=== PATIENT | male | born 1980 | race Asian ===

== ENCOUNTER 2023-12-15 10:24 | Emergency (ER) | payer OTHER, SELFPAY ==
[2023-12-15 10:36] VITALS: BP 135/67; PULSE 69; RESP 19; TEMP 36.4; O2SAT 97; BMI 33.4
--- NOTE | 2023-12-15 11:26 | ED.EYEPROB ---
HPI - Eye Problem <Neri Wright PA-C - Last Filed: 12/15/23 11:33> General Chief complaint: Eye Problems Stated complaint: Recurring [facility] Time Seen by Provider: 12/15/23 11:26 Source: patient Mode of arrival: Ambulatory History of Present Illness HPI Narrative: This is a 43-year-old male presents emergency department due to continued right eye irritation and redness. Patient states that he was diagnosed with a right-sided pink eye as well as strep throat 2 weeks ago and was prescribed a course of amoxicillin. He took amoxicillin as recommended which helped improve his sore throat and he was right eye initially but states that his right eye has been irritated and red with yellow crusting drainage over the last couple of days. Denies any swelling around the eye, pain with extraocular eye movement, vision changes, or any other concerning signs or symptoms. Related Data Previous Rx's Medication Instructions Recorded polymyxin B sulfate 10,000 1 drp EYE-RIGHT QID 7 days #10 mL 12/15/23 unit-trimethoprim 1 mg/mL eye drops Allergies Allergy/AdvReac Type Severity Reaction Status Date / Time No Known Drug Allergies Allergy Verified 12/15/23 10:36 Review of Systems <Neri Wright PA-C - Last Filed: 12/15/23 11:33> Review of Systems Narrative: GENERAL: Denies chills, fatigue, malaise, fever, sweats. HEENT: Reports right eye irritation Denies sinus pain, ear pain, sore throat, difficulty swallowing, dizziness. RESPIRATORY: Denies dyspnea, cough, wheezing, hemoptysis, sputum. CARDIOVASCULAR: Denies chest pain, palpitations, orthopnea, edema, GASTROINTESTINAL: Denies nausea, vomiting, abdominal pain, diarrhea, constipation, melena. : Denies dysuria, frequency, incontinence, hematuria, urinary retention. MUSCULOSKELETAL: denies weakness, joint pain, or bony pain SKIN: Denies rash, skin lesions, or other NEUROLOGIC: Denies weakness, headache, numbness, change in speech, confusion, seizures, incoordination. PSYCHIATRIC: No concerning psychosocial issues. 12 point review of systems is negative except for those stated above Patient History <Neri Wright PA-C - Last Filed: 12/15/23 11:33> Social History Smoking Status: Never smoker Smoking Status: Never smoker alcohol intake frequency: other Substance Use Type: does not use Exam <GIANCARLO Burns Last Filed: 12/15/23 11:33> Narrative Exam Narrative: GENERAL: Well-developed patient, in mild distress. HEAD: Atraumatic. Normocephalic. EYES: Mild erythema to the conjunctiva of the right eye, no periocular edema, ENT: Nose without bleeding, purulent drainage. Throat without erythema, tonsillar hypertrophy or exudate. Airway patent. NECK: Trachea midline. Non tender EXTREMITIES: No edema or joint tenderness. NEURO: AOx3. SKIN: No rash or erythema of visible areas Initial Vital Signs Initial Vital Signs: Vital Signs Temperature 97.6 F 12/15/23 10:36 Pulse Rate 69 12/15/23 10:36 Respiratory Rate 19 12/15/23 10:36 Blood Pressure 135/67 12/15/23 10:36 Pulse Oximetry 97 12/15/23 10:36 Oxygen Delivery Method Room Air 12/15/23 10:36 <Barber Puente DO - Last Filed: 12/15/23 12:08> Initial Vital Signs Initial Vital Signs: Vital Signs Temperature 97.6 F 12/15/23 10:36 Pulse Rate 69 12/15/23 10:36 Respiratory Rate 19 12/15/23 10:36 Blood Pressure 135/67 12/15/23 10:36 Pulse Oximetry 97 12/15/23 10:36 Oxygen Delivery Method Room Air 12/15/23 10:36 Course <Neri Wright PA-C - Last Filed: 12/15/23 11:33> Vital Signs Vital signs: Vital Signs - 8 hr 12/15/23 10:36 Temperature 97.6 F Pulse Rate 69 Respiratory Rate 19 Blood Pressure 135/67 Pulse Oximetry 97 Oxygen Delivery Method Room Air <Barber Puente DO - Last Filed: 12/15/23 12:08> Vital Signs Vital signs: Vital Signs - 8 hr 12/15/23 10:36 Temperature 97.6 F Pulse Rate 69 Respiratory Rate 19 Blood Pressure 135/67 Pulse Oximetry 97 Oxygen Delivery Method Room Air MDM - Eye Problem <GIANCARLO Burns Last Filed: 12/15/23 11:33> MDM Narrative Medical decision making narrative: ED course: This is a 43-year-old male presents emergency department for suspected bacterial conjunctivitis. We will prescribe Polytrim antibiotic eyedrops. Does not wear contact lenses. No evidence of any kind of orbital or periorbital cellulitis. CC: Right eye irritation Complicating co-morbidities: None Data collected from: Previous notes Medical records reviewed: Patient was not been to this emergency department the past Differential considered, but not limited to: Viral conjunctivitis, bacterial conjunctivitis, periorbital cellulitis Exam documented above, pertinent findings include: Erythematous conjunctiva of the right eye Lab Test results independently reviewed as above. Pertinent findings: No obtained Imaging studies independently reviewed: None obtained Scores Used: None MIPS Elements: None Consultations: None Treatments: None Re-evaluations: None Discussion: Discussed plan with the patient was comfortable with the plan Diagnosis: Bacterial conjunctivitis Disposition: see below, along with detailed discharge instructions that have been reviewed with patient as well as indications for ED re-evaluation and additional outpatient follow up Discharge Plan Departure Patient Disposition: Home Clinical Impression: Bacterial conjunctivitis Activity Restrictions/Additional Instructions: Thank you for coming to the [facility] Emergency Department today. Please use the antibiotic eyedrops as prescribed Please return to the emergency department if you develop any severe eye pain, swelling around the eye, or any other concerning signs or symptoms. I hope you feel better soon. Please follow up with your primary care provider within a week if your symptoms continue. If you do not have a primary care provider please contact the [facility] Resource line at [phone]. They will ask some questions about your medical history and help you get set up with a provider in the community. Prescriptions: New polymyxin B sulf-trimethoprim 10,000 unit- 1 mg/mL drops 1 drp EYE-RIGHT QID 7 Days Qty: 10 0RF Stand Alone Forms: Patient Portal/API ED Sign-out <Barber Puente, DO - Last Filed: 12/15/23 12:08> Cosign ED Attending Cosignature Attestation: Dr Puente Co-Sign Statement: I was available for consultation during this patient's emergency department visit. This chart is signed by myself for administrative purposes only. I did not have direct contact with this patient during this visit. They were seen independently by the APC.
== END 2023-12-15 11:42 | disposition home or self-care (01) ==
PROVIDERS: Emergency Provider Physician Assistant Medical
DX: H10.9 Unspecified conjunctivitis (principal)
CPT/HCPCS: 99281; 99283